=== PATIENT | male | born 1990 ===

== ENCOUNTER 2017-06-28 03:08 | Emergency (ER) | payer SELFPAY ==
[2017-06-28 03:13] VITALS: BMI 42.2
[2017-06-28 03:17] VITALS: BP 147/85; PULSE 95; RESP 18; TEMP 98.7; O2SAT 100
--- NOTE | 2017-06-28 03:33 | ED PDOC ---
Arrival/HPI - General Chief Complaint: Bite Time Seen by Provider: 06/28/17 03:09 Historian: Patient - History of Present Illness Narrative History of Present Illness (Text): 06/28/17 03:29 Avani Grimes is a 27 year old male who presents to the emergency department for evaluation of possible insect bite on left james and right upper thigh. Reports of mild itchiness to the area. Patient noticed them after returning home from recent travel to [place]. Denies any fever, chills, headache, dizziness, chest pain, shortness of breath, or any other complaints at this time. Severity Level: Mild Activities at Onset: Light Past Medical History - Provider Review Nursing Documentation Reviewed: Yes - Infectious Disease Hx of Infectious Diseases: None - Psychiatric Hx Substance Use: No Family/Social History - Physician Review Nursing Documentation Reviewed: Yes Family/Social History: No Known Family HX Smoking Status: Never Smoked Hx Alcohol Use: Yes Frequency of alcohol use: Socially Hx Substance Use: No Allergies/Home Meds Allergies/Adverse Reactions: Allergies No Known Allergies Allergy (Verified 06/28/17 03:13) Review of Systems - Physician Review All systems were reviewed & negative as marked: Yes - Review of Systems Constitutional: Normal. absent: Fatigue Respiratory: Normal. absent: SOB, Cough, Sputum Cardiovascular: Normal. absent: Palpitations Gastrointestinal: Normal. absent: Abdominal Pain, Diarrhea, Nausea, Vomiting Musculoskeletal: Other (right upper thigh eris size rash. left james ecchymosis. ) Neurological: Normal. absent: Headache, Dizziness Physical Exam Vital Signs Temp Pulse Resp BP Pulse Ox 06/28/17 03:08 98.7 F 95 H 18 147/85 100 Temperature: Afebrile Blood Pressure: Normal Pulse: Regular Respiratory Rate: Normal Appearance: Positive for: Well-Appearing, Non-Toxic, Comfortable Pain Distress: None Mental Status: Positive for: Alert and Oriented X 3 - Systems Exam Head: Present: Atraumatic, Normocephalic Pupils: Present: PERRL Extroacular Muscles: Present: EOMI Conjunctiva: Present: Normal Mouth: Present: Moist Mucous Membranes Neck: Present: Normal Range of Motion Respiratory/Chest: Present: Clear to Auscultation, Good Air Exchange. No: Respiratory Distress, Accessory Muscle Use Cardiovascular: Present: Regular Rate and Rhythm, Normal S1, S2. No: Murmurs Back: Present: Normal Inspection Upper Extremity: Present: Normal Inspection. No: Cyanosis, Edema Lower Extremity: Present: Normal Inspection. No: Edema Neurological: Present: GCS=15, CN II-XII Intact, Speech Normal, Motor Func Grossly Intact, Normal Sensory Function Skin: Present: Warm, Dry, Rashes (small circinate slightly raised rash (nickel size)to right thigh/ small ecchymotic bruise left lower leg), Normal Color Psychiatric: Present: Alert, Oriented x 3, Normal Insight, Normal Concentration Medical Decision Making ED Course and Treatment: Impression: A 27 year old male who presents to the emergency department for evaluation of possible insect bites. Patient recently came back home from travel to [place] Plan: -- Benadryl -- Prednisone -- Reassess and disposition Progress Notes: 06/28/17 03:53 Patient is stable for discharge. Advised to follow up with the rough rice tender within few days and present back to emergency department for new/worsening symptoms. - Medication Orders Current Medication Orders: Discontinued Medications Diphenhydramine HCl (Benadryl) 50 mg PO ONCE STA Stop: 06/28/17 03:31 Last Admin: 06/28/17 03:47 Dose: 50 mg Prednisone (Prednisone Tab) 40 mg PO ONCE STA Stop: 06/28/17 03:31 Last Admin: 06/28/17 03:47 Dose: 40 mg Disposition/Present on Arrival - Present on Arrival Any Indicators Present on Arrival: No History of DVT/PE: No History of Uncontrolled Diabetes: No Urinary Catheter: No History of Decub. Ulcer: No History Surgical Site Infection Following: None - Disposition Have Diagnosis and Disposition been Completed?: Yes Diagnosis: Dermatitis Disposition: HOME/ ROUTINE Disposition Time: 03:41 Patient Plan: Discharge Condition: GOOD Discharge Instructions (ExitCare): Dermatitis (ED) Additional Instructions: meds as prescribed/follow up with the rough rice tender this week Prescriptions: DiphenhydrAMINE [Benadryl] 50 mg PO Q6 PRN #24 cap PRN Reason: Itching / Pruritus Clotrimazole 1% Cream [Lotrimin 1%] 1 applic TOP BID #1 tube predniSONE [Prednisone] 40 mg PO DAILY #10 tab Referrals: Kelly De La Paz MD [Staff Provider] - Follow up with primary Forms: [employer] (Arabic)
== END 2017-06-28 03:51 | disposition home or self-care (01) ==
LOC: ED 03:08
DX: L30.9 Dermatitis, unspecified (principal)